=== PATIENT | female | born 1985 | race African-American/Black ===

== ENCOUNTER 2022-01-31 14:50 | Emergency (ER) | payer BC ==
[~2022-01-31] VITALS: Ht 157.5 cm; Wt 84.8 kg
[2022-01-31] MEDS ORDERED: KETOROLAC TROMETHAMINE 15 MG INJ IVP ONE (15:30)
[2022-01-31] MEDS ORDERED: IV NORMAL SALINE 1000 ML BAG IV ONE (15:30)
[2022-01-31 15:39] LABS: *BLOOD, URINE 3+ (NEGATIVE); *COLOR,URINE YELLOW (YELLOW); *KETONES,URINE 4+ (NEGATIVE); *UROBILINOGEN,URINE 0.2 E.U./dl (NORMAL); LEUKOCYTE ESTERASE ,URINE NEGATIVE (NEGATIVE); NITRITE, URINE NEGATIVE (NEGATIVE); UGLUCOSE NEGATIVE (NEGATIVE)
[2022-01-31 15:42] LABS: *BILIRUBIN,URIN 2+ (NEGATIVE); *CLARITY,URINE CLOUDY (CLEAR)
[2022-01-31 15:46] LABS: *URINE HCG, QUAL NEGATIVE (NEGATIVE); HEMATOCRIT 30.8 % (31.2-41.9); MEAN CORPUSCULAR HEMOGLOBIN 20.7 uug (24.7-32.8); MEAN CORPUSCULAR VOLUME 64.6 fL (75.5-95.3); PLATELET COUNT (AUTO) 474 K/uL (179-408); POTASSIUM 2.8 mmol/L (3.5-5.1)
[2022-01-31] MEDS ORDERED: IOHEXOL 300MG/ML 100 ML INFUS..BTL ONE (15:46)
[2022-01-31 15:50] LABS: BILIRUBIN,DIRECT 0.1 mg/dL (0.0-0.2); BILIRUBIN,TOTAL 0.3 mg/dL (0.2-1.0); TOTAL PROTEIN, SERUM 7.9 g/dL (6.4-8.2)
[2022-01-31] MEDS ORDERED: KETOROLAC TROMETHAMINE 30 MG INJ ONE (15:50)
[2022-01-31 16:22] LABS: BACTERIA,URINE FEW /HPF (NONE SEEN); SQUAMOUS EPITHELIAL CELL,UR MODERATE /HPF (NONE SEEN); WBC,URINE 0-3 /HPF (0-3)
[2022-01-31] MEDS ORDERED: POTASSIUM CHLORIDE 20 MEQ TAB.PRT.SR ONE (16:23)
[2022-01-31] MEDS ORDERED: POTASSIUM CHLORIDE 20 MEQ TAB.PRT.SR PO ONE (16:30)
[2022-01-31] MEDS ORDERED: methylPREDNISolone SOD SUCC 125 MG/2 ML VIAL IV ONE (16:45)
[2022-01-31] MEDS ORDERED: methylPREDNISolone SOD SUCC 125 MG/2 ML VIAL ONE (17:06)
[2022-01-31] MEDS ORDERED: METH4TAB3 PO (17:31)
--- NOTE | 2022-01-31 17:46 | NUR ---
discharge instructions given and IV site discontinued. Copy of CT results given to patient along with discharge instructions.
== END 2022-01-31 17:48 | disposition home or self-care (01) ==
LOC: ER 14:50
DX: K50.10 Crohn's disease of large intestine without complications (principal); E87.6 Hypokalemia; D72.829 Elevated white blood cell count, unspecified; R19.7 Diarrhea, unspecified
CPT/HCPCS: 99285; 74177; 96374; 96361; 96375; 80076; 80048; 81001; 84703; 83690; 85025; 36415; J1885; J2930; Q9967; J7040; A4663